=== PATIENT | male | born 1975 | race Caucasian/White ===

== ENCOUNTER 2017-04-18 20:07 | Emergency (ER) | payer SELFPAY ==
[~2017-04-18] VITALS: Ht 175.3 cm; Wt 102.1 kg
[2017-04-18] MEDS ORDERED: ATARAX,VISTARIL25 MG PO (20:47)
[2017-04-18] MEDS ORDERED: DOXYCYCLINE MO100 MG PO (20:50)
[2017-04-18 21:18] VITALS: BP 130/76
[2017-04-19 10:13] LABS: TREPONEMA ANTIBODY NEGATIVE (NEGATIVE)
[2017-04-19] MEDS ORDERED: BENADRYL ALLERG25 MG PO (23:11)
[2017-04-19] MEDS ORDERED: MEDROL DOSEPAK4 MG PO (23:11)
== END 2017-04-18 21:21 | disposition home or self-care (01) ==
LOC: RME 20:07 → EME 20:07 → RME 21:21
PROVIDERS: Physician Assistant
DX: R21 Rash and other nonspecific skin eruption (principal)
CPT/HCPCS: 85651; 86780; 99281; 99283; Q0177

== ENCOUNTER 2017-04-19 17:37 | Emergency (ER) | payer SELFPAY ==
[~2017-04-19] VITALS: Ht 175.3 cm; Wt 103.6 kg
[~2017-04-19 17:37] MED LIST: ATARAX,VISTARIL25 MG PO; DOXYCYCLINE MO100 MG PO
[2017-04-19 20:40] LABS: EOSINOPHIL (%) 5.6 % (0-5); EOSINOPHIL COUNT 0.5 K/uL (0-0.3); HEMATOCRIT 48.3 % (38.0-50.0); IMMATURE GRANULOCYTE (%) 1.1 % (0.0-0.7); IMMATURE GRANULOCYTE COUNT 0.1 K/uL; INSTRUMENT ABS NEUTROPHIL CT 5.8 K/uL; LYMPHOCYTE COUNT 2.1 K/uL (1.0-2.8); MCH 30.4 PG (29.0-34.0); MCHC 35.2 G/DL (30.0-36.0); MCV 86.4 FL (86-99); MEAN PLAT.VOLUME 9.1 uM^3 (9.0-12.4); MONOCYTE (%) 9.6 % (3-12); MONOCYTE COUNT 0.9 K/uL (0-0.8); NEUTROPHIL (%) 61.2 % (45-76); NEUTROPHIL COUNT 5.8 K/uL (1.8-6.4); PLATELET COUNT 228 K/uL (156-360); RBC DIS.WIDTH-CV 12.5 % (11.8-14.6); RBC DIS.WIDTH-SD 39.5 % (39-53); RED BLOOD COUNT 5.59 M/uL (4.00-5.50); WHITE BLOOD COUNT 9.4 K/uL (4.1-10.2)
[2017-04-19 20:48] LABS: CHLORIDE 106 mEq/L (99-109); POTASSIUM 4.1 mEq/L (3.7-5.4); SODIUM 139 mEq/L (136-147)
[2017-04-19 20:50] LABS: GLUCOSE 81 mg/dL (70-99)
[2017-04-19 20:51] LABS: ANION GAP 8 MEQ/L (2-14)
[2017-04-19 20:52] LABS: TOTAL BILIRUBIN 0.4 mg/dL (0.0-1.0)
[2017-04-19 20:53] LABS: ALKALINE PHOSPHATASE 91 IU/L (3-129)
[2017-04-19 20:54] LABS: GFR ESTIMATE (CALCULATED) > 59 mL/min/
[2017-04-19 20:55] LABS: UREA NITROGEN (BUN) 14 mg/dL (9-23)
[2017-04-19] MEDS ORDERED: MEDROL DOSEPAK4 MG PO (23:11)
[2017-04-19] MEDS ORDERED: BENADRYL ALLERG25 MG PO (23:11)
[2017-04-19 23:59] VITALS: BP 112/86
== END 2017-04-20 00:02 | disposition home or self-care (01) ==
LOC: EME 17:37
PROVIDERS: Emergency Medicine
DX: L30.8 Other specified dermatitis (principal); Z87.19 Personal history of other diseases of the digestive system; Z90.49 Acquired absence of other specified parts of digestive tract
CPT/HCPCS: 80053; 85025; 99281; 99284; J1200; J1885; J2930